=== PATIENT | female | born 1945 | race Caucasian/White ===

== ENCOUNTER 2017-03-23 11:28 | Outpatient (CLI) | payer OTHER ==
--- NOTE | 2017-03-23 12:06 | DIAGNOSTIC IMAGING REPORT ---
PROCEDURE: XR FOOT 3 VIEWS - LEFT INDICATION: LEFT FOOT PAIN TECHNIQUE: Three views. COMPARISON: None. FINDINGS: No fracture or dislocation. Mild first MTP joint degenerative changes. Degenerative changes of the second tarsometatarsal joint with some osteolysis. Mild soft tissue swelling over the dorsum of the foot. IMPRESSION: 1. Osteoarthritic changes 2. Results discussed with Dr. Nina.
== END 2017-03-23 23:00 | disposition home or self-care (01) ==
LOC: XR SRH 11:28
DX: M19.031 Primary osteoarthritis, right wrist (principal)